=== PATIENT | female | born 1955 | race Caucasian/White ===

== ENCOUNTER → 2017-03-14 | Outpatient (CLI) | payer BC ==
[~2017-03-14] MED LIST: ASPEC325 PO; CEPH500C PO; CLBCR15 EXT; DPRCR15 TOP; DTRSR2 PO; FRRS300 PO; GLC500 PO; MCR25 PO; NITR-5 PO; OXYC-57 PO; PRLSR20 PO
== END | disposition home or self-care (01) ==
LOC: C.LABSPEC 16:59
PROVIDERS: ATTEND Nurse Practitioner Family
DX: N39.0 Urinary tract infection, site not specified (principal)

== ENCOUNTER → 2017-07-26 | Outpatient (CLI) | payer BC | LOC: C.PATHSPEC 17:15 | PROVIDERS: ATTEND Urology | DX: R31.0 Gross hematuria (principal); R39.15 Urgency of urination ==

== ENCOUNTER → 2017-08-30 | Outpatient (CLI) | payer BC | END | disposition home or self-care (01) | LOC: C.PATHSPEC 17:06 | PROVIDERS: ATTEND Urology | DX: R31.0 Gross hematuria (principal) ==

== ENCOUNTER → 2017-08-30 | Outpatient (CLI) | payer BC | LOC: C.PATHSPEC 17:09 | PROVIDERS: ATTEND Urology | DX: R35.0 Frequency of micturition (principal); R39.15 Urgency of urination; R31.0 Gross hematuria; R32 Unspecified urinary incontinence; N39.41 Urge incontinence; N39.0 Urinary tract infection, site not specified ==

== ENCOUNTER → 2017-09-05 | Outpatient (CLI) | payer BC ==
[~2017-09-05] MED LIST changes: +FUROSEMIDE INJ 10 MG/ML 2 ML VIAL IV ONE
--- NOTE | 2017-09-05 14:22 | DIAGNOSTIC IMAGING REPORT ---
RENAL SCAN DIURETIC (MAG 3) CLINICAL HISTORY: 62 years-old Female presenting with N13.30 Bilateral [id number]. TECHNIQUE: A nuclear diuretic renal scan is performed following the IV administration of 7 mCi technetium 99m radiolabeled MAG3. Posterior blood flow images were acquired at one frame every two seconds for a total 30 frames. Posterior static cortical phase images were acquired every 5 minutes for a total of 45 minutes. IV Lasix was administered at 20 minutes. Renal curves were calculated. COMPARISON: CT from 07/17/2017. FINDINGS: On the blood flow phase images, prompt and symmetric perfusion of both kidneys.. On the cortical phase images, normal accumulation of radiotracer in the renal parenchyma and excretion into the renal collecting systems and bladder. Subsequently, clearance phase imaging demonstrates time to peak on the right measuring 13 minutes and on the left was measuring 13 minutes. The time from max to half max pre-Lasix on the right measures 17 minutes and on the left measures 19 minutes. The time to half post Lasix on the right measures 12 minutes and on the left measures 12 minutes. No abnormal retention of radiotracer in the collecting systems after furosemide administration. Right: Approximate counts at 3 minutes: 400 Approximate counts at 20 minutes: 525 Approximate counts at peak: 600 Ratio of counts at 20 minutes/3 minutes: 1.31 Ratio of counts at 20 minutes/peak: 0.88 Left: Approximate counts at 3 minutes: 550 Approximate counts at 20 minutes: 800 Approximate counts at peak: 800 Ratio of counts at 20 minutes/3 minutes: 1.45 Ratio of counts at 20 minutes/peak: 1.0 Split function measurements of 41% on the right and 59% on the left. Reference ranges: Normal time to peak: 3 to 5 minutes. Normal time from peak to half max pre-Lasix: 8-12 minutes. Ratio of counts at 20 minutes/3 minutes should be less than 0.8 and 20 minutes/peak less than 0.3. Washout of at least 50% of tracer within 10 minutes post Lasix normal; if greater than 50% retention between 10 to 20 minutes post Lasix, indeterminate for obstruction; if greater than 50% retention beyond 20 minutes, suspected obstruction. IMPRESSION: 1. Findings indeterminate for bilateral renal obstruction though more likely indicative of a reservoir effect in the setting of a flaccid system. Decreased renal function bilaterally most suggestive of medical renal disease. 2. Relative renal function on the right 41% and on the left kidney 59%. Electronically signed by: Javid Corrales M.D. 09/05/2017 2:21 PM Dictated Date/Time: 09/05/2017 1:43 PM
== END | disposition home or self-care (01) ==
LOC: C.NUCL 11:07
PROVIDERS: ATTEND Urology
DX: N13.30 Unspecified hydronephrosis (principal)

== ENCOUNTER → 2017-09-20 | Outpatient (CLI) | payer BC ==
[~2017-09-20] MED LIST changes: -FUROSEMIDE INJ 10 MG/ML 2 ML VIAL IV ONE
== END | disposition home or self-care (01) ==
LOC: C.PATHSPEC 16:58
PROVIDERS: ATTEND Urology
DX: R35.0 Frequency of micturition (principal); R39.0 Extravasation of urine; R39.15 Urgency of urination; R31.0 Gross hematuria; N39.41 Urge incontinence

== ENCOUNTER → 2017-10-16 | Day surgery (SDC) | payer BC ==
[2017-10-03 15:13] VITALS: BMI 35.0
--- NOTE | 2017-10-03 15:39 | PAT Medication Instructions ---
Service Date Oct 03, 2017. Current Home Medication List Aspirin (Aspirin), 1 TAB PO QAM Doxycycline Hyclate (Doxycycline Hyclate), 1 TAB PO BID Insulin Isophan/Regular (Novolin 70/30), 26 UNITS SC QAM Insulin Isophan/Regular (Novolin 70/30), 24 UNITS SC QPM Metformin Hcl (Glucophage), 1,000 MG PO BID Mirabegron (Myrbetriq Er), 50 MG PO QPM Nitrofurantoin Monohyd Macrocr (Macrobid), 100 MG PO HS Omeprazole (Prilosec), 20 MG PO BID Oxybutynin Chloride (Oxytrol), 1 PATCH TD TW Psyllium (Metamucil), 1 DOSE PO DAILY PRN for prn Medication Instructions For Your Scheduled Surgery -Continue as directed: Oxybutynin Chloride (Oxytrol), 1 PATCH TD TW - Hold the following medications 10 days prior to surgery (per surgeon): Aspirin (Aspirin), 1 TAB PO QAM - Hold the following medications the morning of surgery: Metformin Hcl (Glucophage), 1,000 MG PO BID Psyllium (Metamucil), 1 DOSE PO DAILY PRN for prn - Take the following medications the morning of surgery with a sip of water: Doxycycline Hyclate (Doxycycline Hyclate), 1 TAB PO BID Omeprazole (Prilosec), 20 MG PO BID - Take the following medications as scheduled the night before surgery: Insulin Isophan/Regular (Novolin 70/30), 24 UNITS SC QPM Metformin Hcl (Glucophage), 1,000 MG PO BID Mirabegron (Myrbetriq Er), 50 MG PO QPM Nitrofurantoin Monohyd Macrocr (Macrobid), 100 MG PO HS Omeprazole (Prilosec), 20 MG PO BID Psyllium (Metamucil), 1 DOSE PO DAILY PRN for prn (if needed) - For Insulin Dependent Diabetic patients: Test blood sugar A.M. of surgery. - If BLOOD SUGAR IS GREATER THAN 150, take half of your regular dose of: Insulin Isophan/Regular (Novolin 70/30) -- TAKE 13 UNITS - If BLOOD SUGAR IS LESS THAN 150, do not take any: Insulin Isophan/ Regular (Novolin 70/30) If you have any questions please call us at [phone] or [phone] or [phone]
[2017-10-03 16:10] LABS: BASO % 0.3 %; BASO ABS # 0.04 K/uL (0-0.2); EOS % 4.7 %; EOS ABS # 0.57 K/uL (0-0.5); HEMATOCRIT 33.7 % (37-47); HEMOGLOBIN 10.4 g/dL (12.0-16.0); IG# 0.04 K/uL (0.00-0.02); LYMPH % 14.1 %; LYMPH ABS # 1.72 K/uL (1.2-3.4); MEAN CELL VOLUME 77.1 fL (80-100); MEAN CORPUSCULAR HEMOGLOBIN 23.8 pg (25-34); MEAN CORPUSCULAR HGB CONC 30.9 g/dl (32-36); MEAN PLATELET VOLUME 8.9 fL (7.4-10.4); MONO % 9.3 %; MONO ABS # 1.14 K/uL (0.11-0.59); NEUT % 71.3 %; PLATELET COUNT 530 K/uL (130-400); RED CELL DISTRIBUTION WIDTH CV 16.1 % (11.5-14.5); RED CELL DISTRIBUTION WIDTH SD 45.3 fL (36.4-46.3); WHITE BLOOD COUNT 12.21 K/uL (4.8-10.8)
[2017-10-03 16:19] LABS: CALCIUM 9.5 mg/dl (8.5-10.1); CREATININE 1.35 mg/dl (0.60-1.20); POTASSIUM 3.7 mmol/L (3.5-5.1)
--- NOTE | 2017-10-03 16:52 | DIAGNOSTIC IMAGING REPORT ---
CHEST 2 VIEWS ROUTINE HISTORY: Preop. COMPARISON: Chest 02/16/2010. FINDINGS: The lungs are clear. Cardiac silhouette is normal in size. No pleural effusions. No pneumothorax. IMPRESSION: No acute process. Electronically signed by: Robert Villasenor M.D. 10/03/2017 4:51 PM Dictated Date/Time: 10/03/2017 4:49 PM
[~2017-10-16] VITALS: Ht 162.6 cm; Wt 93.8 kg
[~2017-10-16] MED LIST changes: -ASPEC325 PO; +ASPI-470 PO; +ATROPINE SULFATE 0.1 MG/ML 5ML SYR IV PRN; +BELLADONNA/OPIUM SUPP 60 MG SUPP PR ONE; -CEPH500C PO; +CIPROFLOXACIN / D5W 400 MG IV SCH; -CLBCR15 EXT; +Cysto-Conray II 17.2% 250ML BOTTLE ONE; +DEXAMETHASONE SOD INJ 4 MG/ML VIAL ONE; +DOXY1TAB6 PO; -DPRCR15 TOP; -DTRSR2 PO; +EpHEDrine SULFATE INJ 50 MG/ML AMP IV PRN; +FENTANYL CITRATE INJ 50 MCG/1 ML 2 ML VIAL ONE; -FRRS300 PO; -GLC500 PO; +HYDROmorphone INJ 2 MG/ML SYR/VIAL IV PRN; +INSU70IN2 SC; +LACTATED RINGER'S 1000ML 1,000 ML IV SCH; +LIDOCAINE HCL 2% 2 ML VIAL (20MG/ML) ONE; -MCR25 PO; +METF-384 PO; +MIDAZOLAM HCL 1 MG/ML 2ML VIAL ONE; +MIRA1TAB3 PO; +ONDANSETRON INJ 2 MG/ML 2 ML VIAL IV PRN; +ONDANSETRON INJ 2 MG/ML 2 ML VIAL ONE; +OXYB3.9D TD; +OXYCODONE/ACETAMINOPHEN 5-325 TAB PO PRN; +PHEN-775 PO; +PHENAZOPYRIDINE HCL 200 MG TAB PO PRN; +PHENYLEPHRINE 100MCG/ML 5ML SYR IV PRN; +PROPOFOL IV EMULSION 10 MG/ML 20 ML VIAL ONE; +PSYL48.59 PO
[2017-10-16 08:36] VITALS: BP 148/95; PULSE 75; TEMP 36.6; O2SAT 96; Ht 162.6 cm; Wt 93.8 kg
--- NOTE | 2017-10-16 08:42 | History & Physical Bridge Note ---
H&P Re-Evaluation Bridge Note: I have examined the patient, reviewed the History & Physical and in the interval since the performance of the History & Physical I have noted the following changes of clinical significance: No changes noted
--- NOTE | 2017-10-16 10:29 | [facility] Operative Report ---
Operative Report Operative Date October 16, 2017. Pre-Operative Diagnosis Abnormal Cystoscopy, Refractory Hemorrhagic Cystitis Post-Operative Diagnosis Abnormal Cystoscopy, Refractory Hemorrhagic Cystitis Procedure(s) Performed Cystoscopy, Cold Cup Bladder Biopsies, Rollerball Fulgeration Surgeon Dr Koehler Civil [employer] Designer Surgeon(s) None Estimated Blood Loss 0cc Findings Friable mucosa circumferentially fulgurated, patulous ureteral orifices consistent with reflux. Specimens A: Right Bladder Biopsy B: Left Bladder Biopsy C: Anterior Bladder Biopsy D: Posterior Bladder Biopsy 1: Urine For Culture Drains [address] Messer with 10 cc of sterile water in the balloon Anesthesia Type General Complication(s) none Disposition no Recovery Room / PACU Indications Patient is a 62-year-old female with a history of persistent hematuria refractory cystitis despite trials of extended courses of antibiotics and other therapies. Previous bladder biopsy is demonstrated no malignancy but her difficulties continue as well as persistent pelvic pain and irritative symptoms. She is here today for more thorough fulguration in the operating room as well as better quality biopsies to rule out any adverse pathology. Please see H&P for further details. She has been placed on extended course of ciprofloxacin for positive urine culture for Klebsiella resistant to Bactrim and nitrofurantoin. SCDs were used for DVT prophylaxis and intravenous ciprofloxacin provided for coverage today as well. She has sufficient antibiotics for an additional week postoperatively. Description of Procedure Patient was properly identified and brought into the operative suite after identification for proper consent in the chart. General anesthesia with laryngeal mask was initiated and patient was prepped and draped in the standard fashion for this procedure. Full timeout procedure was followed. [address] rigid cystoscope was placed in the bladder under direct visualization and bladder was surveyed in its entirety demonstrating similar findings to previous in the form of inflamed and refractory mucosa without clear papillary changes circumferentially. Open-mouth diverticulum at the dome of the bladder was appreciated. Patulous ureteral orifices, left greater than right felt to be consistent with reflux and likely the source of some of the patient's hydronephrosis noted as an outpatient were appreciated. Cold cup bladder biopsies were taken from the right, left, anterior and posterior bladder wall. These were sent for pathologic analysis. Cystoscope was removed and a [address] monopolar resectoscope was introduced. Using a rollerball areas of abnormal mucosa mostly at the dome lateral aspects of the bladder were fulgurated thoroughly. Excellent hemostasis was appreciated after this was complete. Bladder neck was noted to be relatively spared. No significant patches of abnormal mucosa felt to be the source of bleeding for the patient were residual after this was completed. No evidence of bladder perforation or other bladder injury at the end of the case was appreciated. Bladder was partially distended and resectoscope was removed. [address] Messer catheter was placed for a couple of hours of bladder rest in the postoperative period. Anesthesia was reversed and patient was transferred to the recovery room in stable condition. Belladonna and opium suppository was provided for additional postoperative analgesia prior to reversal of anesthesia. Follow-up instructions: Patient quit her ciprofloxacin as prescribed. Prescription for Percocet and Pyridium for postoperative analgesia is provided. Trial of void prior to discharge home today. Patient is instructed to contact our service should she note any fevers, chills, nausea, vomiting or other difficulties in the postoperative period. Postoperative appointment is confirmed. I attest to the content of the Intraoperative Record and any orders documented therein. Any exceptions are noted below.
--- NOTE | 2017-10-16 10:32 | Discharge Instructions ---
Discharge Instructions Date of Service October 16, 2017. Admission Reason for Admission: Abnormal Cysto Discharge Discharge Diagnosis / Problem: Hemorrahgic cystitis and abnormal cysto s/p biopsy, rollerball fulguration Discharge Goals Goal(s): Decrease discomfort, Improve function, Improve disease control, Diagnostic testing, Therapeutic intervention Activity Recommendations Activity Limitations: as noted below Lifting Limitations: no more than 25 pounds, gradually increase as tolerated Exercise/Sports Limitations: rest today, gradually increase as tolerated May Resume Sexual Activity: after follow-up appointment Shower/Bathe: no limitations Driving or Machine Use: resume 1 day after discharge . Instructions / Follow-Up Instructions / Follow-Up Follow-up in office as scheduled for postoperative visit. Current Hospital Diet Patient's current hospital diet: Discharge Diet Recommended Diet: Regular Diet (good fluid intake) Procedures Procedures Performed: Cystoscopy, Cold Cup Bladder Biopsies, Rollerball Fulgeration Pending Studies Studies pending at discharge: yes List of pending studies: Pathology discussion Medical Emergencies . Who to Call and When: Medical Emergencies: If at any time you feel your situation is an emergency, please call 911 immediately. . Non-Emergent Contact Non-Emergency issues call your: Urologist Call Non-Emergent contact if: you have a fever, temperature is above 101 . . "Provider Documentation" section prepared by Franklyn Freeman. . [place] Drug Monitoring Program Search Results: patient reviewed within database, no issues identified
[2017-10-16 11:20] VITALS: BP 135/64; PULSE 80; TEMP 36.5; O2SAT 92
[2017-10-16 11:50] VITALS: BP 144/62; PULSE 66; TEMP 36.5; O2SAT 95
[2017-10-16 12:20] VITALS: BP 131/77; PULSE 74; TEMP 36.5; O2SAT 93
--- NOTE | 2017-10-16 13:50 | Anesthesiology Progress Note ---
Anesthesia Post Op Note Date & Time October 16, 2017 at 13:50 Vital Signs Pain Intensity: 0 Vital Signs Past 12 Hours Date Time Temp Pulse Resp B/P (MAP) Pulse Ox O2 Delivery O2 Flow Rate FiO2 10/16/17 12:20 36.5 74 18 131/77 93 Room Air 10/16/17 11:50 36.5 66 20 144/62 95 Room Air 10/16/17 11:20 36.5 80 20 135/64 92 Room Air 10/16/17 11:10 36.3 84 20 136/83 96 Room Air 10/16/17 11:00 80 20 154/91 97 Oxymask 5 10/16/17 10:50 83 22 155/87 98 Oxymask 8 10/16/17 10:40 36.0 91 20 166/90 98 Oxymask 15 10/16/17 08:36 36.6 75 18 148/95 (112) 96 Room Air Notes Mental Status: alert / awake / arousable, participated in evaluation Pt Amnestic to Procedure: Yes Nausea / Vomiting: adequately controlled Pain: adequately controlled Airway Patency, RR, SpO2: stable & adequate BP & HR: stable & adequate Hydration State: stable & adequate Anesthetic Complications: no major complications apparent
== END | disposition home or self-care (01) ==
LOC: C.ACU 07:47
PROVIDERS: ATTEND Urology
DX: N30.20 Other chronic cystitis without hematuria (principal); E11.9 Type 2 diabetes mellitus without complications; Z79.84 Long term (current) use of oral hypoglycemic drugs; Z79.82 Long term (current) use of aspirin; Z79.4 Long term (current) use of insulin; Z79.899 Other long term (current) drug therapy; Z90.89 Acquired absence of other organs; Z90.49 Acquired absence of other specified parts of digestive tract; Z98.890 Other specified postprocedural states

== ENCOUNTER → 2018-01-16 | Outpatient (CLI) | payer BC ==
[~2018-01-16] MED LIST changes: -ATROPINE SULFATE 0.1 MG/ML 5ML SYR IV PRN; -BELLADONNA/OPIUM SUPP 60 MG SUPP PR ONE; -CIPROFLOXACIN / D5W 400 MG IV SCH; -Cysto-Conray II 17.2% 250ML BOTTLE ONE; -DEXAMETHASONE SOD INJ 4 MG/ML VIAL ONE; -DOXY1TAB6 PO; -EpHEDrine SULFATE INJ 50 MG/ML AMP IV PRN; -FENTANYL CITRATE INJ 50 MCG/1 ML 2 ML VIAL ONE; -HYDROmorphone INJ 2 MG/ML SYR/VIAL IV PRN; -LACTATED RINGER'S 1000ML 1,000 ML IV SCH; -LIDOCAINE HCL 2% 2 ML VIAL (20MG/ML) ONE; -MIDAZOLAM HCL 1 MG/ML 2ML VIAL ONE; -ONDANSETRON INJ 2 MG/ML 2 ML VIAL IV PRN; -ONDANSETRON INJ 2 MG/ML 2 ML VIAL ONE; -OXYCODONE/ACETAMINOPHEN 5-325 TAB PO PRN; -PHEN-775 PO; -PHENAZOPYRIDINE HCL 200 MG TAB PO PRN; -PHENYLEPHRINE 100MCG/ML 5ML SYR IV PRN; -PROPOFOL IV EMULSION 10 MG/ML 20 ML VIAL ONE
== END | disposition home or self-care (01) ==
LOC: C.LABSPEC 16:57
PROVIDERS: ATTEND Urology
DX: N39.0 Urinary tract infection, site not specified (principal)